=== PATIENT | male | born 1940 | race Caucasian/White ===

== ENCOUNTER 2020-11-02 08:33 | Outpatient (CLI) | payer MEDICARE, OTHER, SELFPAY ==
--- NOTE | 2020-11-05 13:33 | WPDPFTINT ---
PFT Interpretation PFT Interpretation: This PFT met all criteria for ATS standards and reproducibility FEV/FVC 63% FEV1 123% FVC 123% No bronchodilator challenge was given TLC 117% RV 87% RV/TLC 32% DLCO 69% when adjusted for alveolar volume but not adjusted for hemoglobin Flow volume loops showed some expiratory coving Impression: Possible mild airflow obstruction with mildly decreased diffusion capacity. This may be due to old age or mild COPD. Clinical correlation is advised.
== END 2020-11-02 08:34 | disposition home or self-care (01) ==
LOC: ANHPFT 08:35
PROVIDERS: Family Provider Internal Medicine; PCP Internal Medicine; Visit Provider Nurse Practitioner Adult Health
DX: R06.00 Dyspnea, unspecified (principal)
CPT/HCPCS: 94375; 94726; 94729

== ENCOUNTER 2021-08-24 17:58 | Emergency (ER) | payer MEDICARE, OTHER, SELFPAY ==
--- NOTE | ~2021-08-24 | CT_ITS ---
EXAMINATION: CT abdomen pelvis w con DATE: 08/24/2021 19:48 INDICATION: Lower abdominal pain with nausea, vomiting and diarrhea. TECHNIQUE: Computed tomography (CT) of the abdomen and pelvis was performed with 100 mL Omnipaque-350 intravenous contrast. Automated exposure control and iterative reconstruction technique were employe d. The dose-length product was 551.89 mGy-cm. COMPARISON: None FINDINGS: Very small posterior layering right pleural effusion. Dependent atelectasis in both lungs superimpose d over moderate emphysema. A few tiny calcified nodules in the left lower lobe along with a couple ti ny splenic calcifications consistent with old granulomatous disease. Heart size is normal. Atheroscle rotic coronary artery calcifications. No pericardial effusion. Mild intrahepatic biliary ductal dilat ion and mild dilation of the common bile duct which measures up to 8 mm in maximal diameter. The gall bladder is also dilated to 4.9 cm in maximal diameter but without evident wall thickening or perichol ecystic inflammatory stranding to suggest acute cholecystitis. No evident cholelithiasis/choledocholi thiasis although gallstones were identified on an ultrasound study dated 11/07/2016. Liver is otherwise unremarkable. Pancreas and bilateral adrenal glands are normal. Bilateral renal cysts, the largest e xophytic cyst measuring 7.2 cm on the left and 5.2 cm on the right. Normal appendix. There is moderat e colonic diverticulosis with a sigmoid predominance. There is no adjacent inflammatory change to shannon ggest diverticulitis. No bowel obstruction. Couple small bladder diverticula likely related to chroni c outlet obstruction from the enlarged prostate which measures 4.9 x 4.0 cm There is calcified athero sclerosis of the aorta and many of the other arteries. No free intraperitoneal gas or fluid. Multiple infrarenal periaortic lymph nodes measuring up to 1 cm in maximal diameter which is at the upper styles its of normal. Moderate to severe lumbar spondylosis. There are bridging osteophytes at multiple leve ls in the lower thoracic spine consistent with diffuse idiopathic skeletal hyperostosis (DISH). IMPRESSION: 1. Mild dilation of the otherwise normal-appearing gallbladder and mild intra and extrahepatic biliar y ductal dilation in a patient with known cholelithiasis suggesting possibility of a distal obstructi ng stone. Correlate with liver function tests and consider MRCP for further evaluation. 2. Moderate emphysema with tiny right pleural effusion. 3. Diverticulosis. 4. Couple small bladder diverticulum likely related to chronic outlet obstruction from the enlarged p rostate. 5. Borderline sized retroperitoneal lymph nodes which are most likely reactive although could not abs olutely exclude metastatic disease or lymphoma. Reviewed, dictated and finalized at location A. [employer] IMPRESSION: 1. Mild dilation of the otherwise normal-appearing gallbladder and mild intra a nd extrahepatic biliary ductal dilation in a patient with known cholelithiasis suggesting possibility of a distal obstructing stone. Correlate with liver func tion tests and consider MRCP for further evaluation. 2. Moderate emphysema with tiny right pleural effusion. 3. Diverticulosis. 4. Couple small bladder diverticulum likely related to chronic outlet obstructi on from the enlarged prostate. 5. Borderline sized retroperitoneal lymph nodes which are most likely reactive although could not absolutely exclude metastatic disease or lymphoma.
[2021-08-24 18:23] VITALS: BP 117/52; PULSE 75; RESP 14; TEMP 36.5; O2SAT 98
[2021-08-24 19:14] LABS: Basophils Percent Auto 0.4 % (0.2-1.2); Eosinophils Absolute Auto 0.1 K/mm3 (0-0.3); Eosinophils Percent Auto 0.6 % (0-4.4); Hematocrit 27.1 % (42.0-52.0); Hemoglobin 9.6 g/dL (14.0-18.0); Immature Granulocyte Absolute 0.04 K/mm3 (0.00-0.031); Immature Granulocyte Percent A 0.4 % (0-0.5); Lymphocytes Absolute Auto 0.38 K/mm3 (0.9-3.2); Lymphocytes Percent Auto 3.9 % (18.3-44.2); Mean Corpuscular HGB Conc 35.4 g/dl (32-36); Mean Corpuscular Hemoglobin 35.7 pg (26-34); Mean Corpuscular Volume 100.7 fl (80-100); Mean Platelet Volume 9.8 fl (7.4-10.4); Monocytes Absolute Auto 0.6 K/mm3 (0.1-0.6); Monocytes Percent Auto 6.1 % (2.6-8.5); Neutrophils Absolute Auto 8.5 K/mm3 (1.3-6.7); Neutrophils Percent Auto 88.6 % (45.5-73.1); Platelet Count Result 155 k/mm3 (150-375); Red Blood Count 2.69 M/mm3 (4.6-6.20); Red Cell Distribution Width 12.2 % (11.5-14.5); White Blood Count 9.6 K/mm3 (4.5-10.0)
[2021-08-24 19:25] LABS: Alanine Aminotransferase 12 U/L (4-50); Alkaline Phosphatase 98 U/L (38-126); Anion Gap 9 mmol/L (8-16); Aspartate Amino Transferase 28 U/L (17-59); Bilirubin,Total 0.9 mg/dL (0.2-1.3); Blood Urea Nitrogen 23 mg/dL (9-20); Calcium 9.1 mg/dL (8.4-10.2); Carbon Dioxide 24 mmol/L (22-30); Chloride 98 mmol/L (98-107); Estimated CRCL calculation 42 ml/min; Estimated Glomerular Filt Rate 58; Glucose 131 mg/dL (65-110); Lipase 30 U/L (23-300); Potassium 3.6 mmol/L (3.4-5.0); Sodium 131 mmol/L (137-145)
[2021-08-24] MEDS: ONDANSETRON INJ 4 MG/2 ML VIAL IV PUSH (19:26)
[2021-08-24] MEDS: SODIUM CHLORIDE 0.9% IV 1,000 ML 999 ML IV CONT (19:26)
--- NOTE | 2021-08-24 19:31 | ED.NAVMDI ---
HPI - Nausea/Vomiting/Diarrhea General Chief complaint: Nausea/Vomiting/Diarrhea Stated complaint: diarrhea x 3 days Time Seen by Provider: 08/24/21 18:59 Source: patient History of Present Illness HPI Narrative: Patient edward has not been feeling well for the past couple days. Ports that his symptoms initially started as diarrhea and lower abdominal pain. Have not progressed to nausea and vomiting. Reports subjective fevers and chills at home. Abdominal pain is described as a burning sensation and intermittent no radiation, no clear aggravating or alleviating symptoms. Also reports feeling weak when he gets up and moves around. When he lays in bed he is feeling improved. Denies prior abdominal surgery denies any blood or bile or melena in his stool or emesis. Denies any urinary symptoms Related Data Allergies Allergy/AdvReac Type Severity Reaction Status Date / Time Bumble Bee Allergy Unknown ITCHING Uncoded 01/20/19 10:35 SWELLING Honey Bee Allergy Unknown ITCHING, Uncoded 01/20/19 10:35 SWELLING Wasp Allergy Unknown ITCHING Uncoded 01/20/19 10:35 SWELLING Review of Systems Review of Systems: CONSTITUTIONAL: Reports fevers and chills EYES: Denies visual changes, redness, or discharge. ENT: Denies rhinorrhea, congestion, sore throat, or otalgia. CARDIOVASCULAR: Denies chest pain, palpitations, or edema. RESPIRATORY: Denies cough or dyspnea. GASTROINTESTINAL: Reports abdominal pain nausea vomiting diarrhea GENITOURINARY: Denies dysuria or hematuria. SKIN: Denies rash or itching. MUSCULOSKELETAL: Denies back pain, joint pain, or myalgia. NEUROLOGIC: Denies headache, numbness, dizziness, or focal weakness. PSYCHIATRIC: Denies anxiety or depression. All systems reviewed & are unremarkable except as noted in HPI and below PMFSH Past Medical History Medical History (Updated 08/24/21 @ 21:14 by Jayant Ibarra MD) Hyperlipidemia Hypertension Social History Social History (Updated 08/24/21 @ 19:33 by Jayant Ibarra MD) Smoking status: Never smoker Substance use: never Exam Narrative: GENERAL: Well-appearing, well-nourished, and in no acute distress. HEAD: Normocephalic, atraumatic. EYES: PERRLA and EOMI. ENT: Nares clear, no rhinorrhea or epistaxis. Mucous membranes moist. NECK: Supple. No masses. No JVD CHEST: Clear to auscultation. No respiratory distress. No wheezes rales or rhonchi HEART: Regular rate and rhythm. No murmur heard. Normal peripheral pulses. ABDOMEN: Minimal lower abdominal pain with deep palpation soft, nondistended, normal active bowel sounds. EXTREMITIES: Normal range of motion. No edema. SKIN: Warm, dry, no rash. NEURO: No focal deficits. Alert and oriented x3. PSYCH: Normal mood and affect. Course Reevaluation(s) Reevaluation #1: Patient reports feeling much improved results and plan reviewed with patient. Patient comfortable outpatient plan. Date: 08/24/21 Time: 21:11 Vital Signs Vital signs: Vital Signs Temperature 36.5 C 08/24/21 18:23 Pulse Rate 75 08/24/21 18:23 Respiratory Rate 14 08/24/21 18:23 Blood Pressure 117/52 L 08/24/21 18:23 Pulse Oximetry 98 08/24/21 18:23 Temperature 36.5 C 08/24/21 18:23 Pulse Rate 80 08/24/21 21:35 Respiratory Rate 20 08/24/21 21:35 Blood Pressure 132/78 08/24/21 21:35 Pulse Oximetry 98 08/24/21 21:35 MDM - Nausea/Vomiting/Diarrhea MDM Narrative Medical decision making narrative: H&P as above, vss, pt looks clinically well, exam with nonacute abdomen, labs clinically unremarkable, img unremarkable for acute life-threatening, additional labs/img considered, symptomatic relief available as needed, patient treated with fluids and Zofran on reevaluation pt continues to looks clinically well, reports feeling much improved and nausea has resolved. Suspect viral process lymph nodes likely reactive due to patient's constellation of symptoms, dns severe sepsis, severe dehydration, bowel obstr
[2021-08-24 19:58] LABS: Troponin I < 0.012 ng/mL (0.000-0.034)
[2021-08-24 20:06] LABS: Lactic Acid Reflex 0.9 mmol/L (0.7-2.1)
[2021-08-24] MEDS: SODIUM CHLORIDE 0.9% IV 500 ML 999 ML IV CONT (20:38)
[2021-08-24 21:01] LABS: Add Urine Microscopic? YES; Appearance Urine Clear (Clear); Bilirubin Urine Negative (Negative); Blood Urine Negative (Negative); Color Urine Yellow (Yellow); Glucose Urine UA Negative (Negative); Ketones Urine Trace mg/dL (Negative); Leukocyte Esterase Ur Negative LEU/UL (Negative); Mucus Urine Rare /lpf; Nitrate Urine Negative (Negative); Protein Urine 1+ mg/dL (Negative); RBC Urine 0-2 /hpf (0-2); Urobilinogen Urine Negative mg/dL (<2.0); WBC Urine 0-3 /hpf
[2021-08-24 21:35] VITALS: BP 132/78; PULSE 80; RESP 20; O2SAT 98
[2021-08-25 18:14] LABS: SARS-CoV-2 RNA PCR Negative
== END 2021-08-24 21:37 | disposition home or self-care (01) ==
PROVIDERS: Emergency Medicine; Emergency Provider Emergency Medicine; PCP Internal Medicine
DX: R19.7 Diarrhea, unspecified (principal); R68.83 Chills (without fever); R11.2 Nausea with vomiting, unspecified; R10.30 Lower abdominal pain, unspecified; Z20.822 Contact with and (suspected) exposure to COVID-19; E78.5 Hyperlipidemia, unspecified; I10 Essential (primary) hypertension
CPT/HCPCS: 36415; 74177; 80053; 81001; 83605; 83690; 84484; 85025; 96361; 96374; 99284; C9803; J2405; J7030; J7040; Q9967; U0003; U0005

== ENCOUNTER 2022-11-14 04:52 | Emergency (ER) | payer MEDICARE, OTHER, SELFPAY ==
[2022-11-14] VITALS (39 sets, daily range): BP systolic 153–183; BP diastolic 81–166; PULSE 73–95; RESP 12–23; TEMP 36.8; O2SAT 89–100
--- NOTE | ~2022-11-14 | XR_ITS ---
Clinical Indication: Shortness of breath PA and lateral views of the chest: Comparison: 11/06/2016 Findings: There is bibasilar haziness and interstitial disease. No definite pleural effusion or pneum othorax.. Cardiomediastinal silhouette is within normal limits. Bones and soft tissues are unremarka ble. Impression: Bibasilar hazy and interstitial disease. Correlate for chronic interstitial disease versus mild bibas ilar pulmonary edema, or possibly infection. Reviewed, dictated and finalized at location . [employer] Impression: Bibasilar hazy and interstitial disease. Correlate for chronic interstitial dis ease versus mild bibasilar pulmonary edema, or possibly infection.
--- NOTE | 2022-11-14 05:08 | ECG_ITS ---
Measurements Intervals [place] Rate: 74 P: 4 MO: 159 QRS: -26 QRSD: 85 T: 107 QT: 408 QTc: 455 Interpretive Statements SINUS RHYTHM WITH SINUS ARRHYTHMIA BORDERLINE LEFT AXIS DEVIATION [QRS AXIS < -20] NONSPECIFIC T-WAVE ABNORMALITY NO PREVIOUS ECG AVAILABLE FOR COMPARISON Electronically Signed On 11-14-2022 15:37:03 ELECTRICAL TECH by Omar Zapien M.D.
--- NOTE | 2022-11-14 05:13 | ED.SOB ---
HPI - SOB/Dyspnea General Chief Complaint: Shortness of Breath/Dyspnea <Vito Galvez MD - Last Filed: 11/14/22 06:58> Stated Complaint: shortness of breath <Vito Galvez MD - Last Filed: 11/14/22 06:58> Time Seen by Provider: 11/14/22 05:02 <Vito Galvez MD - Last Filed: 11/14/22 06:58> History of Present Illness HPI Narrative: This is an 82M with reported history of heart disease who presents to the ED complaining of shortness of breath while lying down for the past day. He noticed the sensation yesterday. It was accompanied by a higher than normal blood pressure. His primary care doctor recommended Amlodipine, which the patient states made the sensation worse. He complains of dry, non-bloody cough but denies fevers, chest pain, loss of consciousness or lower extremity swelling. <Vito Galvez MD - Last Filed: 11/14/22 06:58> Related Data Allergies/Adverse Reactions: Allergies Allergy/AdvReac Type Severity Reaction Status Date / Time Bumble Bee Allergy Unknown ITCHING Uncoded 01/20/19 10:35 SWELLING Honey Bee Allergy Unknown ITCHING, Uncoded 01/20/19 10:35 SWELLING Wasp Allergy Unknown ITCHING Uncoded 01/20/19 10:35 SWELLING <Vito Galvez MD - Last Filed: 11/14/22 06:58> Review of Systems Review of Systems: CONSTITUTIONAL: Chronic chills Denies fever, or sweats. ENT: Denies rhinorrhea, congestion, sore throat, or otalgia. CARDIOVASCULAR: Denies chest pain, palpitations, or edema. RESPIRATORY: cough and orthopnea GASTROINTESTINAL: Denies abdominal pain, nausea, vomiting, or diarrhea. GENITOURINARY: Denies dysuria or hematuria. SKIN: Denies rash or itching. MUSCULOSKELETAL: Denies back pain, joint pain, or myalgia. NEUROLOGIC: Denies headache, numbness, dizziness, or weakness. PSYCHIATRIC: Denies anxiety or depression. <Vito Galvez MD - Last Filed: 11/14/22 06:58> [facility] Past Medical History Medical History: Medical History (Updated 11/14/22 @ 09:15 by Kaykay Osuna MD) Anemia CAD (coronary artery disease) GI bleed Hyperlipidemia Hypertension <Vito Galvez MD - Last Filed: 11/14/22 06:58> Social History Social History: Social History Smoking status: Never smoker Substance use: never <Vito Galvez MD - Last Filed: 11/14/22 06:58> Exam Narrative: GENERAL: Well-developed, well-nourished, and in no acute distress. HEAD: Normocephalic, atraumatic. EYES: PERRLA and EOMI. ENT: Nares clear, no rhinorrhea or epistaxis. Mucous membranes moist. Oropharynx without tonsillar hypertrophy exudate or other lesions. CHEST: Faint rales in the right lower lung kim. Good aeration bilaterally. No respiratory distress. No wheezes or rhonchi HEART: Regular rate and rhythm. No murmur heard. Normal peripheral pulses. ABDOMEN: Soft, nontender to palpation, nondistended, normal active bowel sounds. No CVA tenderness to palpation EXTREMITIES: Normal range of motion. No edema. SKIN: Warm, dry, no rash. NEURO: No focal deficits. Alert and oriented x3. PSYCH: Normal mood and affect. <Vito Galvez MD - Last Filed: 11/14/22 06:58> Course Course Emergency Course: 06:50 - BNP 10,800. ECG shows T-wave inversions in Lead 1, aVL and V6, unchanged. Troponin 0.024. Chest xray shows infiltrate vs pulmonary edema. Chemistries show mild creatinine elevation at 1.4 (baseline 1.2). Discussed patient with Batch Operator Dr. 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 07:00 - Patient signed out to oncoming ED physician, Dr. Osuna pending repeat troponin. <Vito Galvez MD - Last Filed: 11/14/22 06:58> Reevaluation(s) Reevaluation #1: Patient been resting quietly in the emergency room without any issues or problems. Patient is telling me that he may have a shortness of breath for long time. A
[2022-11-14 05:23] LABS: Basophils Absolute Auto 0.1 K/mm3 (0.0-0.1); Eosinophils Absolute Auto 0.3 K/mm3 (0-0.3); Eosinophils Percent Auto 3.9 % (0-4.4); Hematocrit 28.1 % (42.0-52.0); Hemoglobin 8.9 g/dL (14.0-18.0); Immature Granulocyte Absolute 0.03 K/mm3 (0.00-0.031); Immature Granulocyte Percent A 0.4 % (0-0.5); Lymphocytes Percent Auto 11.4 % (18.3-44.2); Mean Corpuscular HGB Conc 31.7 g/dl (32-36); Mean Corpuscular Hemoglobin 30.8 pg (26-34); Mean Corpuscular Volume 97.2 fl (80-100); Mean Platelet Volume 9.7 fl (7.4-10.4); Monocytes Absolute Auto 0.4 K/mm3 (0.1-0.6); Monocytes Percent Auto 5.4 % (2.6-8.5); Neutrophils Absolute Auto 6.2 K/mm3 (1.3-6.7); Neutrophils Percent Auto 77.9 % (45.5-73.1); Platelet Count Result 289 k/mm3 (150-375); Red Blood Count 2.89 M/mm3 (4.6-6.20); Red Cell Distribution Width 14.9 % (11.5-14.5); White Blood Count 7.9 K/mm3 (4.5-10.0)
[2022-11-14 05:33] LABS: Alanine Aminotransferase 17 U/L (6-50); Albumin Level 3.9 g/dL (3.5-5.1); Alkaline Phosphatase 97 U/L (38-126); Anion Gap 6 mmol/L (8-16); Aspartate Amino Transferase 30 U/L (17-59); Bilirubin,Total 0.5 mg/dL (0.2-1.3); Blood Urea Nitrogen 31 mg/dL (9-20); Calcium 8.7 mg/dL (8.4-10.2); Carbon Dioxide 27 mmol/L (22-30); Chloride 105 mmol/L (98-107); Estimated Glomerular Filt Rate 48; Glucose 98 mg/dL (65-110); Potassium 4.3 mmol/L (3.4-5.0); Sodium 138 mmol/L (137-145)
[2022-11-14 05:45] LABS: NT Pro B Type Natriuretic Pept 10800 pg/mL (19.9-100); Troponin I 0.024 ng/mL (0.000-0.034)
--- NOTE | 2022-11-14 05:57 | ECG_ITS ---
Measurements Intervals [place] Rate: 75 P: 38 [place]: 185 QRS: -26 QRSD: 89 T: 110 QT: 406 QTc: 456 Interpretive Statements SINUS RHYTHM WITH SINUS ARRHYTHMIA BORDERLINE LEFT AXIS DEVIATION [QRS AXIS < -20] NONSPECIFIC T-WAVE ABNORMALITY COMPARED TO ECG 11/14/2022 05:14:00 NO SIGNIFICANT CHANGES Electronically Signed On 11-14-2022 15:37:31 [employer]LLER by Omar Zapien M.D.
[2022-11-14 07:16] LABS: Influenza A QL RT-PCR Negative (Negative); Influenza B QL RT-PCR Negative (Negative); SARS-CoV-2 RNA PCR Negative
[2022-11-14 08:40] LABS: Troponin I 0.027 ng/mL (0.000-0.034)
[2022-11-14] MEDS: FUROSEMIDE INJ 40 MG/4 ML VIAL 60 MG IV PUSH (09:43)
== END 2022-11-14 09:55 | disposition home or self-care (01) ==
PROVIDERS: Preventive Medicine Aerospace Medicine; Emergency Provider Emergency Medicine; PCP Internal Medicine
DX: I11.0 Hypertensive heart disease with heart failure (principal); I50.9 Heart failure, unspecified; N17.9 Acute kidney failure, unspecified; D64.9 Anemia, unspecified; R06.01 Orthopnea; Z20.822 Contact with and (suspected) exposure to COVID-19; I25.10 Atherosclerotic heart disease of native coronary artery without angina pectoris; E78.5 Hyperlipidemia, unspecified; R94.31 Abnormal electrocardiogram [ECG] [EKG]
CPT/HCPCS: 36415; 71046; 80053; 83880; 84484; 85025; 87636; 93005; 96374; 99284; J1940

== ENCOUNTER 2023-01-22 02:18 | Outpatient (CLI) | payer MEDICARE, OTHER, SELFPAY ==
[2023-01-17 13:49] VITALS: BMI 23.1
--- NOTE | 2023-01-17 13:49 | PC.NURSE ---
Addendum entered by Nel Cohen RN 01/17/23 13:51: PT RELAYS UNDERSTANDING THAT HE SHOULD ENTER HOSPITAL THROUGH IMAGING ENTRANCE AT FRONT OF HOSPITAL AT 10:30AM ON 01/22/23. Original Note: Pre Radiology instructions Report to the outpatient aubrey colungailiradha on date _01/22/23____ at time ___10:30AM____ for procedure Time: __11:00AM__ YOU MAY BE MONITORED AT HOSPITAL FOR UP TO 4 HOURS AFTER YOUR PROCEDURE. A visitor will be allowed to accompany the patient into the hospital. You and your visitor will be asked to self-screen and do not enter if you have any COVID symptoms. A mask is OPTIONAL within the hospital. Patients are to have no food or drink 6 hours prior to procedure time Driving will be restricted after the procedure, you must have a person to drive you home. Labs will be drawn in preop area and once reviewed, you will be taken to radiology area for procedure. When the procedure is completed, you will be taken to outpatient where you will be monitored for several hours. You may have one visitor in this area. Other than holding anti-coagulants, patient may take other medication(s) as scheduled. Prior to your appointment date patients are instructed to hold anti-coagulants after discussing with ordering provider to stop. If unable to discontinue anti-coagulants please notify radiologist. ? No aspirin or warfarin (Coumadin) for 7 days prior to the procedure. ? No clopidogrel (Plavix), ticagrelor (Brilinta), prasugrel (Effient) or dabigatran (Pradaxa) for 5 days prior to the procedure. ? No rivaroxaban (Xarelto), apixaban (Eliquis), dipyridamole (Aggrenox or Persantine) or cilostazol (Pletal) for 2 days prior to the procedure. Medications to discontinue per physician: _HOLD PLAVIX 5 DAYS PRE-OP Date to take last dose: __01/17/23 Please leave all valuables, including medications, at home the day of procedure. The hospital will not accept responsibility for valuables. Wear comfortable, loose fitting clothing.? Follow any additional instructions given to you from ordering provider. Telephone instructions given to __PATIENT and asked if any additional questions and then verbalized understanding. Patient advised to call scheduling provider office or registration scheduling [phone] if any additional questions.
--- NOTE | ~2023-01-22 | CT_ITS ---
EXAMINATION: CT biopsy lymph node DATE: 01/22/2023 12:06 INDICATION: Retroperitoneal lymphadenopathy TECHNIQUE: The procedure including the risks and benefits was discussed with the patient. Risks discu ssed included bleeding and infection. The patient understood the risks and agreed to proceed. The sk in overlying the posterior left paraspinal upper abdomen was prepped and draped in usual sterile fash ion. Anesthetic was administered with 1% lidocaine subcutaneously. A 16 gauge outer needle was adva nced under CT guidance to one of the enlarged left para-aortic retroperitoneal lymph nodes. An 18 gau ge core biopsy needle was then advanced into the lesion. 9 core biopsy specimens were obtained, 5 verenice avelina in the RPMI media and 4 in formalin. The outer needle was removed and the entry site was cleaned and dressed. There were no immediate complications. The dose-length product was 200.23 mGy-cm. FINDINGS: CT images demonstrate the outer needle tip at the margin of a 3.5 x 2.2 cm left para-aortic lymph node. IMPRESSION: 1. Successful CT-guided biopsy of a 3.5 x 2.2 cm left para-aortic retroperitoneal lymph node. Reviewed, dictated and finalized at location A. IMPRESSION: 1. Successful CT-guided biopsy of a 3.5 x 2.2 cm left para-aortic retroperitone al lymph node.
[2023-01-22 12:20] VITALS: BP 135/65; PULSE 72; RESP 16; O2SAT 98
[2023-01-22 12:35] VITALS: BP 130/66; PULSE 70; RESP 16; O2SAT 98
[2023-01-22 12:50] VITALS: BP 134/64; PULSE 69; RESP 14; O2SAT 96
[2023-01-22 13:05] VITALS: BP 149/78; PULSE 76; RESP 16; O2SAT 100
[2023-01-22 13:35] VITALS: BP 137/61; PULSE 70; RESP 16; O2SAT 100
[2023-01-22 14:40] VITALS: BP 131/61; PULSE 74; RESP 16; O2SAT 100
--- NOTE | 2023-01-22 15:34 | SUR.PHASEII ---
1520 dr evans at bedside to give instructions to pt and check on him prior to being discharged. ok for discharge per dr evans
== END 2023-01-22 15:30 | disposition home or self-care (01) ==
PROVIDERS: Radiology Diagnostic Radiology; PCP Internal Medicine; Visit Provider Internal Medicine Hematology & Oncology
PROC: (CPT 77012; principal; 2023-01-22 11:00)
DX: C81.90 Hodgkin lymphoma, unspecified, unspecified site (principal)
CPT/HCPCS: 38505; 77012; 88184; 88305; 88341; 88342

== ENCOUNTER 2023-02-11 02:40 | Day surgery (SDC) | payer MEDICARE, OTHER, SELFPAY ==
[2023-02-10 16:09] VITALS: BMI 23.5
--- NOTE | ~2023-02-11 | BM_ITS ---
EXAMINATION: CCL bone marrow asp w bx diag ORDER COMPLETED DATE: 02/11/2023 09:46 INDICATION: Hodgkin's lymphoma TECHNIQUE: A time-out was performed to verify the patient's name, date of , and procedure to b e performed. The procedure including the risks and benefits was discussed with the patient. Risks dis cussed included bleeding, infection, nerve injury and allergic reaction. The patient understood the r isks and agreed to proceed. The skin overlying the right posterior iliac spine was prepped and draped in usual sterile fashion. Anesthetic was administered with 1% lidocaine subcutaneously. Moderate co nscious sedation was achieved with 50 mcg fentanyl IV. An 11 gauge needle was inserted into the right ilium with fluoroscopic guidance. Bone marrow was aspirated. An 8 gauge needle was then inserted int o the right ilium with fluoroscopic guidance. A core bone marrow biopsy was obtained. The needle was removed and the entry site was cleaned and dressed. There were no immediate complications. A total o f 23 fluoroscopic images were recorded. Fluoroscopy exposure time was 0.1 minutes. FINDINGS: Real-time fluoroscopy demonstrates the biopsy needle tip overlying the right posterior conor c spine. IMPRESSION: 1. Successful fluoroscopic guided bone marrow aspiration. 2. Successful fluoroscopic guided bone marrow biopsy. Reviewed, dictated and finalized at location A.
[2023-02-11 07:59] VITALS: BP 128/63; PULSE 70; RESP 16; TEMP 36.9; O2SAT 99; BMI 22.1
[2023-02-11 08:06] LABS: Hematocrit 26.9 % (42.0-52.0); Hemoglobin 8.9 g/dL (14.0-18.0); Mean Corpuscular HGB Conc 33.1 g/dl (32-36); Mean Corpuscular Hemoglobin 30.1 pg (26-34); Mean Corpuscular Volume 90.9 fl (80-100); Mean Platelet Volume 9.2 fl (7.4-10.4); Platelet Count Result 228 k/mm3 (150-375); Red Blood Count 2.96 M/mm3 (4.6-6.20); Red Cell Distribution Width 15.4 % (11.5-14.5); White Blood Count 4.8 K/mm3 (4.5-10.0)
[2023-02-11 08:18] LABS: Prothrombin Time 13.8 Seconds (11.1-14.7)
[2023-02-11 09:45] VITALS: BP 122/68; PULSE 69; RESP 12; TEMP 36.8; O2SAT 95
[2023-02-11 10:00] VITALS: BP 122/64; PULSE 70; RESP 18; O2SAT 96
[2023-02-11 10:15] VITALS: BP 118/61; PULSE 70; RESP 14; O2SAT 92
[2023-02-11 10:30] VITALS: BP 115/61; PULSE 71; RESP 14; O2SAT 93
[2023-02-11 10:45] VITALS: BP 127/63; PULSE 73; RESP 16; O2SAT 92
== END 2023-02-11 10:55 | disposition home or self-care (01) ==
PROVIDERS: PCP Internal Medicine; Referring Provider Internal Medicine Hematology & Oncology; Visit Provider Radiology Diagnostic Radiology
DX: C81.73 Other Hodgkin lymphoma, intra-abdominal lymph nodes (principal); D64.9 Anemia, unspecified; I10 Essential (primary) hypertension; I25.10 Atherosclerotic heart disease of native coronary artery without angina pectoris; M10.9 Gout, unspecified; I73.00 Raynaud's syndrome without gangrene; E78.5 Hyperlipidemia, unspecified; Z79.02 Long term (current) use of antithrombotics/antiplatelets; Z87.891 Personal history of nicotine dependence
CPT/HCPCS: 36415; 38222; 85027; 85610; 88184; 88185; 88305; 88311; 88313; 88341; 88342; J1642; J3010; J7040

== ENCOUNTER 2023-02-13 12:10 | Outpatient (CLI) | payer MEDICARE, OTHER, SELFPAY ==
--- NOTE | 2023-02-11 09:08 | WPDMODSED ---
Moderate Sedation Note-Pt Data Patient Data Diagnosis: hodgkins lymphoma Present Complaint: lymphoma Procedure to be performed/Plan: bone marrow biopsy Allergies Allergy/AdvReac Type Severity Reaction Status Date / Time bee venom protein (honey bee) Allergy Unknown ITCHING, Verified 02/11/23 07:55 SWELLING Wasp Allergy Unknown ITCHING Uncoded 01/17/23 13:41 SWELLING Home Medications Medication Instructions Recorded Confirmed Type allopurinol 300 mg tablet 150 mg PO DAILY 12/05/22 02/10/23 History amlodipine 10 mg tablet 5 mg PO HS 12/05/22 02/10/23 History clopidogrel 75 mg tablet 75 mg PO DAILY 12/05/22 02/10/23 History hydrochlorothiazide 25 mg tablet 25 mg PO QAM 12/05/22 02/10/23 History multivitamin 1 tablet PO DAILY 12/05/22 02/10/23 History nitroglycerin 0.4 mg sublingual 0.4 mg sublingual Q5M PRN Chest 12/05/22 02/10/23 History tablet Pain olmesartan 20 mg tablet 20 mg PO QAM 12/05/22 02/10/23 History rosuvastatin 5 mg tablet 5 mg PO DAILY 12/05/22 02/10/23 History trazodone 50 mg tablet 50 mg PO HS 12/05/22 02/10/23 History diphenhydramine HCl 25 mg capsule 25 mg PO HS PRN Insomnia 01/13/23 02/10/23 History (Benadryl) ferrous sulfate 325 mg (65 mg 324 mg PO DAILY@1200 #30 tabs 01/17/23 02/10/23 Rx iron) tablet polyethylene glycol 3350 17 gram 17 g PO QAM PRN Constipation #30 ea 01/17/23 02/10/23 Rx oral powder packet (Miralax) sennosides 8.6 mg tablet (Senokot) 8.6 mg PO DAILY PRN constipation 01/17/23 02/10/23 Rx #30 tabs acetaminophen 500 mg tablet 500 mg PO Q4H PRN Pain, Mild 02/10/23 02/10/23 History finasteride 5 mg tablet 5 mg PO DAILY 02/10/23 02/10/23 History Sedation/Anesthesia: No previous sedation/anesthesia problems (including family history). [facility] Past Medical History Medical History (Updated 01/14/23 @ 13:01 by Krunal Padilla MD) Anemia Arthritis CAD (coronary artery disease) GI bleed Gout Hyperlipidemia Hypertension Skin cancer Surgical History Surgical History (Updated 01/14/23 @ 13:01 by Krunal Padilla MD) H/O cataract extraction H/O eye surgery History of removal of pigmented skin lesion Basal cell carcinoma and squamous cell S/P rotator cuff repair Total knee replacement status Family History Family History Father Alcoholism Mother Hypertension Cerebrovascular accident Social History Social History (Updated 01/14/23 @ 00:04 by Brittaney Burgos NP) Social History: The patient is and has 1 daughter Herlinda. The patient is retired from the [employer]. The patient resides in independent living at [place]. Code status full code Smoking packs per day: 2 Smoking cigarettes per day: 40.0 Years smoked: 5 Smoking pack-years: 10.00 Smoking status: Former smoker Tobacco type: cigarettes Additional smoking assessment comments: quit in 1959's Alcohol intake: never Substance use: never Substance use type: does not use Lack of Transportation: No Lack of Food: Never True Current Housing: I Have Housing Concerned About Future Housing: No Difficulty Paying Gas/Electric Bills: No Difficulty Paying for Meds: No Currently Unemployed: No Education: Bachelor's Degree Difficulty w/ Childcare or Family Care: No Living arrangements: alone Occupation/Education: retired Gender identity (if verbalized by the patient): Male Sexual Orientation (if Verbalized by the Patient): Straight or Heterosexual Spiritual care concerns: No Mod Sed Physical Exam Physical Exam Pre Procedural Exam: Normal: Throat, Lungs, Heart Rate, Heart Rhythm and Abdomen Hours since solid foods: 12 Hours since liquid intake: 9 Mallampati Classification: class II ASA Classification/Sedation ASA Classification/Sedation ASA Class: III Emergent: No Risks: Risks, benefits and alternatives explained and patient/family accepted plan for sedation. Patient re-ev
--- NOTE | ~2023-02-13 | PE_ITS ---
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 7.153 mCi of 18-fluorodeoxyglucose (18-FDG) was adminis tered i.v. Low dose computed tomography (CT) images were acquired from the base of the brain to the p roximal thighs for attenuation correction and anatomic localization. Positron emission tomography (PE T) images were acquired in the same distribution beginning 70 minutes after injection. Images includi ng fused PET/CT images were reconstructed in axial, coronal, and sagittal planes. Automated exposure control technique was employed. The dose-length product was 563.51mGy-cm. COMPARISON: CT abdomen and pelvis dated 01/13/[address] dated 01/14/2023 FINDINGS: Head/neck: There is symmetric increased activity in the oral cavity and of the ocular muscles without CT correla te, likely physiologic. There are couple prominently FDG avid mildly enlarged left supraclavicular ly mph nodes., The larger measuring 2.1 x 1.5 cm with maximal SUV of 17.4. Chest: Moderate emphysema. 5 mm FDG avid nodule in the anterior segment of the right upper lobe located near the aortic root with maximal SUV of 5.0. 6 mm right middle lobe nodule with maximal SUV of 1.5. Both of these nodules appear slightly larger than on the prior chest CT. There are couple normal-sized bi lateral axillary lymph nodes with mild increased FDG uptake with maximal SUV of 3.1 on the right and 2.5 on the left. Slightly larger but still normal-sized subcarinal lymph node measuring 2.1 x 1.0 cm with maximal SUV of 15.9 Abdomen/pelvis/proximal thighs: Multiple enlarged and markedly FDG avid abdominal lymph nodes in the periportal and gastrohepatic wilda ins, along the mesentery and most prominently at the retroperitoneum. At the retroperitoneum just bel ow level of the renal arteries form a conglomeration of nodes surrounding the aorta and inferior vena cava together measuring approximately 9.9 x 5.0 cm with maximal SUV of 22. For reference centimeters a more isolated enlarged lymph node in the mesentery in the left abdomen measures 2.8 x 1.8 cm and w ith maximal SUV of 17.3. The caudal most enlarged FDG avid lymph nodes are seen at the level of aorti c bifurcation with maximal SUV of 10.3 which measures slightly greater than 1 cm diameter but unable to be clearly distinguished on CT from the proximal common iliac arteries and the more posterior left common iliac vein with secondary lymph node along the proximal right common iliac chain measuring 10 x 7 mm with maximal SUV of 7.7. There are multiple nodular regions of prominent increased FDG uptake in the spleen without radiologic correlate on the current noncontrast CT images but which appear to correspond to hypoenhancing lesio ns on the earlier contrast-enhanced CT performed 01/13/2023. The most prominent corresponds to the pre viously noted 2.2 cm lesion with maximal SUV of 11.7. Physiologic renal accumulation and excretion of FDG activity in the kidneys, bladder and along portio ns of ureters. Bilateral photopenic low-attenuation renal cysts, the largest on the left measuring 7. 7 cm. There is an approximately 1 cm focus of FDG uptake in the right hepatic lobe which stands out a gainst the background liver activity with maximal SUV of 5.1 but without evident correlate on either the current or prior CT imaging. The gallbladder, pancreas and bilateral adrenal glands are normal. M ild uptake scattered throughout the bowels without radiologic correlate, also likely physiologic. Musculoskeletal: There are multiple FDG avid bone lesions including in the spine, several ribs, pelvis and appendicula r skeleton, the majority without radiologic correlate. For reference there is approximately 3.5 cm re gion of increased uptake on PET imaging at the left posterior oblique spine with maximal SUV of 13.
[2023-02-13 13:07] LABS: Glucose Point of Care 116 mg/dl (65-105)
== END 2023-02-13 12:11 | disposition home or self-care (01) ==
PROVIDERS: PCP Internal Medicine; Visit Provider Internal Medicine Hematology & Oncology
DX: C81.73 Other Hodgkin lymphoma, intra-abdominal lymph nodes (principal)
CPT/HCPCS: 78815; A9552

== ENCOUNTER 2023-02-14 23:55 | Emergency (ER) | payer MEDICARE, OTHER, SELFPAY ==
--- NOTE | ~2023-02-14 | CT_ITS ---
EXAMINATION: CT brain wo con DATE: 02/15/2023 00:40 INDICATION: Patient fell on blood thinners. TECHNIQUE: Computed tomography (CT) of the head was performed without intravenous contrast. The dose- length product was 605.33 mGy-cm. Automated exposure control and iterative reconstruction technique w ere employed. COMPARISON: None FINDINGS: There is a small right subdural hematoma measuring approximately 3 mm thickness, age indete rminate. No ventriculomegaly or midline shift. There are scattered mild periventricular and subcortic al white matter changes, most likely related to small vessel ischemic disease (microangiopathy). Ther e is intracranial atherosclerosis. No acute infarction, mass or mass effect. Paranasal sinuses and ma stoids are pneumatized. IMPRESSION: 1. Small right subdural hemorrhage measuring 3 mm thickness, age indeterminate. 2: Chronic age-related findings. Reviewed, dictated and finalized at location A.
--- NOTE | ~2023-02-14 | XR_ITS ---
XR chest 1V portable 02/15/2023 02:14 Indication: Status post fall. Weakness. Procedure: AP portable chest Comparison: Comparison to multiple prior studies sequentially, with oldest reviewed study dated 02/2009. Findings: Heart size normal. Left basilar infiltrates. Right lung clear. The thorax. No significant e ffusion. Calcified granuloma left cardiophrenic angle. No acute osseous abnormality. Impression: 1: Left basilar infiltrates may represent atelectasis or developing pneumonia. Reviewed, dictated and finalized at location A. Impression: 1: Left basilar infiltrates may represent atelectasis or developing pneumonia.
[2023-02-15 00:05] VITALS: BP 95/50; PULSE 79; RESP 16; TEMP 36.4; O2SAT 96
--- NOTE | 2023-02-15 01:49 | ECG_ITS ---
Measurements Intervals [place] Rate: 61 P: 102 [place]: 183 QRS: -26 QRSD: 104 T: 53 QT: 452 QTc: 458 Interpretive Statements SINUS RHYTHM ST ELEVATION IN ANTERIOR LEADS- PROBABLY EARLY REPOLARIZATION ABNORMALITY BASELINE ARTIFACT- I, II, AVR BORDERLINE ECG COMPARED TO ECG 11/14/2022 06:02:34 NO SIGNIFICANT CHANGES Electronically Signed On 02-15-2023 6:18:16 CDT by Jeromy Kennedy D.O.
[2023-02-15] MEDS: SODIUM CHLORIDE 0.9% IV 1,000 ML 999 ML IV CONT (02:01)
--- NOTE | 2023-02-15 02:02 | ED.GENADULT ---
HPI - General Adult General Chief complaint: Fall Stated complaint: fall, hit head on plavix Time Seen by Provider: 02/15/23 01:41 History of Present Illness HPI narrative: This is a 83-year-old male with history of lymphoma presenting ED after a fall at home. Patient says he has been feeling progressively weak. He got up to use the restroom and fell and struck his head. He did not lose consciousness. He is on Plavix. He was unable to get up due to weakness and called EMS who brought him to the hospital. At this time the patient has no complaints outside of generalized weakness. Related Data Home Medications Medication Instructions Recorded Confirmed allopurinol 300 mg tablet 150 mg PO DAILY 12/05/22 02/10/23 amlodipine 10 mg tablet 5 mg PO HS 12/05/22 02/10/23 clopidogrel 75 mg tablet 75 mg PO DAILY 12/05/22 02/10/23 hydrochlorothiazide 25 mg tablet 25 mg PO QAM 12/05/22 02/10/23 multivitamin 1 tablet PO DAILY 12/05/22 02/10/23 nitroglycerin 0.4 mg sublingual 0.4 mg sublingual Q5M PRN Chest 12/05/22 02/10/23 tablet Pain olmesartan 20 mg tablet 20 mg PO QAM 12/05/22 02/10/23 rosuvastatin 5 mg tablet 5 mg PO DAILY 12/05/22 02/10/23 trazodone 50 mg tablet 50 mg PO HS 12/05/22 02/10/23 diphenhydramine HCl 25 mg capsule 25 mg PO HS PRN Insomnia 01/13/23 02/10/23 (Benadryl) acetaminophen 500 mg tablet 500 mg PO Q4H PRN Pain, Mild 02/10/23 02/10/23 finasteride 5 mg tablet 5 mg PO DAILY 02/10/23 02/10/23 Allergies Allergy/AdvReac Type Severity Reaction Status Date / Time bee venom protein (honey bee) Allergy Unknown ITCHING, Verified 02/14/23 23:56 SWELLING Wasp Allergy Unknown ITCHING Uncoded 02/14/23 23:56 SWELLING PMFSH Past Medical History Medical History Anemia Arthritis CAD (coronary artery disease) GI bleed Gout Hyperlipidemia Hypertension Skin cancer Surgical History Surgical History H/O cataract extraction H/O eye surgery History of removal of pigmented skin lesion Basal cell carcinoma and squamous cell S/P rotator cuff repair Total knee replacement status Family History Family History Father Alcoholism Mother Hypertension Cerebrovascular accident Social History Social History Social History: The patient is and has 1 daughter Herlinda. The patient is retired from the [employer]. The patient resides in independent living at [facility]. Code status full code Smoking packs per day: 2 Smoking cigarettes per day: 40.0 Years smoked: 5 Smoking pack-years: 10.00 Smoking status: Former smoker Tobacco type: cigarettes Additional smoking assessment comments: quit in 1959's Alcohol intake: never Substance use: never Substance use type: does not use Lack of Transportation: No Lack of Food: Never True Current Housing: I Have Housing Concerned About Future Housing: No Difficulty Paying Gas/Electric Bills: No Difficulty Paying for Meds: No Currently Unemployed: No Education: Bachelor's Degree Difficulty w/ Childcare or Family Care: No Living arrangements: alone Occupation/Education: retired Gender identity (if verbalized by the patient): Male Sexual Orientation (if Verbalized by the Patient): Straight or Heterosexual Spiritual care concerns: No Exam Narrative: APPEARANCE: Patient appears chronically unwell Head: atraumatic. EYES: EOMI, DENISSE NOSE: Atraumatic NECK: Trachea midline RESPIRATORY: No increased rate of breathing, CTAB CARDIOVASCULAR: RRR, no peripheral edema ABDOMINAL: Non-distended MUSCULOSKELETAl: No obvious deformities NEURO: Alert. Cranial nerves 2-12 grossly intact. Sensation light touch, motor function cerebellar function intact for 4 extremities. Gait exam was normal. SKIN:: Warm,
--- NOTE | 2023-02-15 02:09 | PC.NURSE ---
Report called to [facility] ER at 0208, spoke to KIAH Diaz.
[2023-02-15 02:21] LABS: Alanine Aminotransferase 31 U/L (6-50); Alkaline Phosphatase 191 U/L (38-126); Anion Gap 5 mmol/L (8-16); Aspartate Amino Transferase 88 U/L (17-59); Bilirubin,Total 0.6 mg/dL (0.2-1.3); Blood Urea Nitrogen 34 mg/dL (9-20); Calcium 9.7 mg/dL (8.4-10.2); Carbon Dioxide 33 mmol/L (22-30); Chloride 93 mmol/L (98-107); Estimated Glomerular Filt Rate 38; Glucose 121 mg/dL (65-110); Sodium 131 mmol/L (137-145)
[2023-02-15 02:28] VITALS: BP 110/54; PULSE 83; RESP 19; O2SAT 94
== END 2023-02-15 02:34 | disposition short-term general hospital (02) ==
PROVIDERS: Emergency Provider Emergency Medicine; PCP Internal Medicine
DX: S06.5X0A Traumatic subdural hemorrhage without loss of consciousness, initial encounter (principal); C85.90 Non-Hodgkin lymphoma, unspecified, unspecified site; R53.1 Weakness; D64.9 Anemia, unspecified; I25.10 Atherosclerotic heart disease of native coronary artery without angina pectoris; E78.5 Hyperlipidemia, unspecified; I10 Essential (primary) hypertension; M10.9 Gout, unspecified; M19.90 Unspecified osteoarthritis, unspecified site; Z96.659 Presence of unspecified artificial knee joint; Z85.828 Personal history of other malignant neoplasm of skin; Z87.891 Personal history of nicotine dependence; Z98.49 Cataract extraction status, unspecified eye; Z79.02 Long term (current) use of antithrombotics/antiplatelets; R94.31 Abnormal electrocardiogram [ECG] [EKG]; R91.8 Other nonspecific abnormal finding of lung field; W19.XXXA Unspecified fall, initial encounter
CPT/HCPCS: 36415; 70450; 71045; 80053; 86850; 86900; 86901; 93005; 96360; 99291; J7030

== ENCOUNTER 2023-02-26 13:39 | Outpatient (CLI) | payer MEDICARE, OTHER, SELFPAY | END 2023-02-26 13:40 | disposition home or self-care (01) | LOC: ANHLAB 13:41 | PROVIDERS: PCP Internal Medicine; Visit Provider Internal Medicine Hematology & Oncology | DX: C81.90 Hodgkin lymphoma, unspecified, unspecified site (principal) | CPT/HCPCS: 36415; 86850; 86900; 86901; 86923 ==

== ENCOUNTER 2023-02-28 07:28 | Outpatient (RCR) | payer MEDICARE, OTHER, SELFPAY ==
[2023-02-28] VITALS (13 sets, daily range): BP systolic 114–160; BP diastolic 64–119; PULSE 42–66; RESP 14–20; TEMP 36.4–37; O2SAT 97–98
[2023-02-28] MEDS: ACETAMINOPHEN 325 MG TABLET 650 MG PO (08:08)
[2023-02-28] MEDS: diphenhydrAMINE HCl CAP 25 MG CAPSULE PO (08:08)
[2023-02-28] MEDS: SODIUM CHLORIDE 0.9% IV 250 ML 30 ML IV CONT (08:11)
[2023-02-28] MEDS: FUROSEMIDE INJ 40 MG/4 ML VIAL 20 MG IV PUSH (12:35)
--- NOTE | 2023-02-28 16:27 | PC.NURSE ---
pt received 2 units prbcs per order. pt tolerated well. pt iv removed and discharged per wheelchair to personal care with cristier. vss at this time of discharge. pt hemodynamically stable at time of discharge. encouraged to called with any questions. v/u
== END 2023-05-29 23:59 | disposition home or self-care (01) ==
LOC: ANHCPCTRAN 07:28
PROVIDERS: PCP Internal Medicine; Visit Provider Internal Medicine Hematology & Oncology
DX: C81.90 Hodgkin lymphoma, unspecified, unspecified site (principal)
CPT/HCPCS: 36430; 96374; A9270; J1940; J7050; P9016